=== PATIENT | female | born 1995 | race Caucasian/White ===

== ENCOUNTER 2018-06-14 11:10 | Emergency (ER) | payer OTHER ==
[2018-06-14] MEDS ORDERED: Ibuprofen 600 MG TAB ONE (11:29)
[2018-06-14] MEDS ORDERED: Lidocaine 1% PF 5 ML VIAL ONE (11:39)
[2018-06-14] MEDS ORDERED: Bacitracin Zinc 1 Packet ONE (11:44)
--- NOTE | 2018-06-14 12:42 | RAD ---
RIGHT FOOT 3 VIEWS: HISTORY: Stepped on nail. FINDINGS: A nail is seen in the soft tissues of the plantar aspect of the foot beneath the 5th MTP joint. No e vidence of osseous involvement. No osseous abnormality identified. IMPRESSION: There is a nail in the plantar soft tissues of the foot. On the AP view, this nail is seen between t he 4th and 5th metatarsophalangeal joints. No evidence of osseous involvement. POS: [id number]
== END 2018-06-14 11:49 | disposition home or self-care (01) ==
LOC: SCSER 11:10
DX: S90.851A Superficial foreign body, right foot, initial encounter (principal); W22.8XXA Striking against or struck by other objects, initial encounter
CPT/HCPCS: 28190; J2001